=== PATIENT | female | born 1990 | race Caucasian/White ===

== ENCOUNTER 2023-11-16 16:03 | Emergency (ER) | payer SELFPAY ==
[~2023-11-16] VITALS: Ht 162.6 cm; Wt 75.0 kg
[2023-11-16 16:08] VITALS: TEMP 97.7; O2SAT 98
[2023-11-16 16:50] LABS: BASOPHILS % 0.3 % (0.0-2.0); DIFFERENTIAL COMMENT 0; EOSINOPHILS % 2.1 % (0.0-5.0); HEMATOCRIT. 35.9 % (36.0-48.0); HEMOGLOBIN. 11.8 g/dL (12.0-16.0); LYMPHOCYTES % 35.1 % (20.0-50.0); MEAN CORPUSCULAR HEMOGLOBIN 24.6 pg (28.0-32.0); MEAN CORPUSCULAR HGB CONC 32.8 g/dL (31.0-37.0); MEAN CORPUSCULAR VOLUME 74.8 fL (81.0-99.0); MEAN PLATELET VOLUME 8.6 fl (7.4-10.4); MONOCYTES % 8.2 % (2.0-8.0); NEUTROPHILS % 54.3 % (40.0-76.0); PLATELET 250 x1000/uL (130-400); RED CELL DISTRIBUTION WIDTH 15.7 % (11.6-14.6); WHITE BLOOD COUNT 5.9 x1000/uL (4.5-11.0)
[2023-11-16 16:55] LABS: CARBON DIOXIDE 20 mEq/L (21-32); CHLORIDE 107 mEq/L (98-107); POTASSIUM 3.8 mEq/L (3.5-5.1); SODIUM 134 mEq/L (136-145)
[2023-11-16 16:56] LABS: CALCIUM 8.1 mg/dL (8.7-10.4)
[2023-11-16 17:00] LABS: CREATININE 0.6 mg/dL (0.6-1.0)
[2023-11-16 17:01] LABS: GLUCOSE 369 mg/dL (70-105); UREA NITROGEN BLOOD 9 mg/dL (9-23)
[2023-11-16 17:03] LABS: BETA HYDROXYBUTYRATE 0.9 mMol/L (0.0-0.3)
[2023-11-16] MEDS: INSULIN LISPRO 100 UNITS/ML SUBCUT ONE (17:38)
[2023-11-16 18:31] LABS: CLARITY URINE CLEAR (CLEAR); COLOR URINE YELLOW (YELLOW); GLUCOSE URINE 3+ (NEGATIVE); KETONES URINE 3+ (NEGATIVE); LEUKOCYTE ESTERASE URINE NEGATIVE (NEGATIVE); NITRITE URINE NEGATIVE (NEGATIVE); OCCULT BLOOD URINE NEGATIVE (NEGATIVE); PROTEIN URINE NEGATIVE (NEGATIVE); SPECIFIC GRAVITY URINE 1.046 (1.005-1.030); UROBILINOGEN URINE 0.2 E.U./dL (0.2-1.0)
[2023-11-16 19:30] LABS: BACTERIA URINE 1+; SQUAMOUS EPITHELIAL CELL URINE 1+ /lpf (RARE/1+)
[2023-11-16 19:31] LABS: RBC URINE 0-2 /hpf (0-2); WBC URINE 0-2 /hpf (0-2)
[2023-11-16] MEDS ORDERED: INSU100I28 SQ ×2 (19:54)
[2023-11-16] MEDS ORDERED: INSU100I13 SQ (19:55)
[2023-11-16 21:13] VITALS: BP 106/71; PULSE 83; RESP 16; O2SAT 100
== END 2023-11-16 21:14 | disposition home or self-care (01) ==
LOC: ER 16:03
DX: E11.65 Type 2 diabetes mellitus with hyperglycemia (principal); E03.9 Hypothyroidism, unspecified; R53.1 Weakness; Z20.822 Contact with and (suspected) exposure to COVID-19
CPT/HCPCS: 99285; 71045; 87426; 80048; 81003; 81025; 82010; 85025; 36415; 96372; J1815